=== PATIENT | male | born 1970 ===

== ENCOUNTER 2020-06-03 13:40 | Outpatient (RCR) | payer BC | END 2020-06-08 | disposition home or self-care (01) | LOC: WCC 13:40 | DX: T24.231A Burn of second degree of right lower leg, initial encounter (principal); T22.211A Burn of second degree of right forearm, initial encounter; T20.211A Burn of second degree of right ear [any part, except ear drum], initial encounter; L98.492 Non-pressure chronic ulcer of skin of other sites with fat layer exposed; X08.8XXA Exposure to other specified smoke, fire and flames, initial encounter; Y92.9 Unspecified place or not applicable | CPT/HCPCS: 11042 ==

== ENCOUNTER 2020-06-10 13:57 | Outpatient (RCR) | payer BC | END 2020-07-08 | disposition home or self-care (01) | LOC: WCC 13:57 | DX: T24.231A Burn of second degree of right lower leg, initial encounter (principal); T22.211A Burn of second degree of right forearm, initial encounter; T20.211A Burn of second degree of right ear [any part, except ear drum], initial encounter; L98.492 Non-pressure chronic ulcer of skin of other sites with fat layer exposed; X58.XXXA Exposure to other specified factors, initial encounter; Y92.9 Unspecified place or not applicable ==